=== PATIENT | female | born 1950 | race Caucasian/White ===

== ENCOUNTER 2016-03-21 13:33 | Emergency (ER) | payer OTHER ==
[~2016-03-21] VITALS: Ht 165.1 cm; Wt 75.7 kg
[~2016-03-21 13:33] MED LIST: ACCUPRIL10 MG PO; ALBUTEROL SULF8.5 GM IH; ARTHROTEC 751 TABLET PO; ASPIR 8181 M1 PO; ATORVASTATIN CA40 MG PO; CAL-MAG TABLET1 EACH PO; CALCIUM WITH M1 EAC2 PO; CYMBALTA30 MG PO; CYMBALTA60 MG PO; FLEXERIL10 MG PO; GABAPENTIN100 MG PO; JANUMET 50/11 TABLET PO; JANUVIA100 MG PO; KEFLEX500 MG PO; LANTUS 10100 UNITS/ SC; LEVEMIR FL100 UNIT/1 SC; LEVEMIR FL100 UNITS/ SC; NITROSTAT0.4 MG SL; NOVOLOG MI100 UNIT/4 SC; PERCOCET 5/31 TABLET PO; PLAVIX75 MG PO; PRAVACHOL40 MG PO; PREDNISONE20 MG PO; TOPROL XL25 MG PO; VITAMIN D-32000 UNI1 PO; XARELTO20 MG PO; ZESTRIL2.5 MG PO; ZITHROMAX Z-PA250 MG PO; ZOFRAN4 MG PO
[2016-03-21 16:40] LABS: HEMATOCRIT 39.8 % (36.0-46.0); MCHC 33.9 G/DL (30.0-36.0); MCV 82.6 FL (83-99); MEAN PLAT.VOLUME 11.2 uM^3 (9.5-12.4); PLATELET COUNT 264 K/uL (156-360); RBC DIS.WIDTH-CV 14.9 % (11.8-14.6); RBC DIS.WIDTH-SD 44.5 % (39-53); RED BLOOD COUNT 4.82 M/uL (3.80-5.20)
[2016-03-21 16:49] LABS: PROTHROMBIN TIME 10.1 (9.2-11.2); PTT 23.5 (25-32)
[2016-03-21 16:50] LABS: CHLORIDE 99 mEq/L (99-109); POTASSIUM 4.3 mEq/L (3.7-5.4); SODIUM 133 mEq/L (136-147)
[2016-03-21 16:52] LABS: GLUCOSE 246 mg/dL (70-99)
[2016-03-21 16:53] LABS: ANION GAP 9 MEQ/L (2-14)
[2016-03-21 16:56] LABS: GFR ESTIMATE (CALCULATED) > 59 mL/min/
[2016-03-21 16:57] LABS: UREA NITROGEN (BUN) 18 mg/dL (9-23)
[2016-03-21] MEDS ORDERED: GABAPENTIN300 MG PO ×2 (17:36→17:37)
[2016-03-21] MEDS ORDERED: OMEPRAZOLE20 MG PO (17:37)
[2016-03-21] MEDS ORDERED: CYANOCOBALAM1000 MCG PO (17:38)
[2016-03-21] MEDS ORDERED: VITAMIN D31000 UNIT PO (17:38)
[2016-03-21 21:10] VITALS: BP 108/70
== END 2016-03-21 21:10 | disposition short-term general hospital (02) ==
LOC: EME 13:33
PROVIDERS: Emergency Medicine
DX: T82.868A Thrombosis due to vascular prosthetic devices, implants and grafts, initial encounter (principal); I73.9 Peripheral vascular disease, unspecified; Y83.2 Surgical operation with anastomosis, bypass or graft as the cause of abnormal reaction of the patient, or of later complication, without mention of misadventure at the time of the procedure; E11.9 Type 2 diabetes mellitus without complications; I10 Essential (primary) hypertension; I25.2 Old myocardial infarction; K21.9 Gastro-esophageal reflux disease without esophagitis; Z86.73 Personal history of transient ischemic attack (TIA), and cerebral infarction without residual deficits
CPT/HCPCS: 80048; 85027; 85610; 85730; 93926; 99281; 99285; J2270

== ENCOUNTER 2016-06-28 10:36 | Emergency (ER) | payer OTHER ==
[~2016-06-28] VITALS: Ht 162.6 cm; Wt 77.2 kg
[~2016-06-28 10:36] MED LIST changes: +CYANOCOBALAM1000 MCG PO; +GABAPENTIN300 MG PO; +OMEPRAZOLE20 MG PO; +VITAMIN D31000 UNIT PO
[2016-06-28 11:22] LABS: HEMATOCRIT 41.4 % (36.0-46.0); MCH 29.2 PG (29.0-34.0); MCHC 32.9 G/DL (30.0-36.0); MCV 88.8 FL (83-99); MEAN PLAT.VOLUME 11.4 uM^3 (9.5-12.4); PLATELET COUNT 324 K/uL (156-360); RBC DIS.WIDTH-CV 13.2 % (11.8-14.6); RBC DIS.WIDTH-SD 43.5 % (39-53); RED BLOOD COUNT 4.66 M/uL (3.80-5.20); WHITE BLOOD COUNT 8.6 K/uL (4.1-10.2)
[2016-06-28 11:34] LABS: CHLORIDE 97 mEq/L (99-109); POTASSIUM 4.4 mEq/L (3.7-5.4); SODIUM 131 mEq/L (136-147)
[2016-06-28 11:36] LABS: GLUCOSE 368 mg/dL (70-99)
[2016-06-28 11:38] LABS: ANION GAP 9 MEQ/L (2-14)
[2016-06-28 11:40] LABS: GFR ESTIMATE (CALCULATED) 48 mL/min/
[2016-06-28 11:41] LABS: UREA NITROGEN (BUN) 32 mg/dL (9-23)
[2016-06-28 11:43] LABS: TROP-I INTERPRETATION NEGATIVE; TROPONIN-I < 0.01 ng/mL (0.0-0.30)
[2016-06-28 14:36] LABS: PROTHROMBIN TIME 26.8 (9.2-11.2)
[2016-06-28 14:48] LABS: TROP-I INTERPRETATION NEGATIVE; TROPONIN-I < 0.01 ng/mL (0.0-0.30)
[2016-06-28 15:25] LABS: INTER. NORMALIZED RATIO 2.6
[2016-06-28 16:08] LABS: ADD MIUA? YES; BILIRUBIN NEGATIVE; BLOOD SMALL; COLOR YELLOW ((YELLOW)); KETONES NEGATIVE; LEUKOCYTES MODERATE; NITRITE POSITIVE; PROTEIN (STRIP) NEGATIVE; SPECIFIC GRAVITY 1.013 (1.000-1.030); UROBILINOGEN 0.2 MG/DL (0.2-1.0)
[2016-06-28 16:12] LABS: GLUCOSE (STRIP) 500
[2016-06-28 16:24] LABS: BACTERIA RARE /HPF; EPITHELIAL CELLS RARE /HPF; MUCUS NONE SEEN /LPF; RED BLOOD CELLS 0-5 /HPF (0-5); UCUL ADDED? NO; WHITE BLOOD CELLS 20-30 /HPF (0-5)
[2016-06-28] MEDS ORDERED: PROAIR HFA8.5 GM IH (16:25)
[2016-06-28] MEDS ORDERED: CEFDINIR300 MG PO (16:25)
[2016-06-28 16:58] VITALS: BP 119/67
== END 2016-06-28 17:00 | disposition home or self-care (01) ==
LOC: EME 10:36
PROVIDERS: Emergency Medicine
DX: J40 Bronchitis, not specified as acute or chronic (principal); R07.89 Other chest pain; E86.0 Dehydration; N39.0 Urinary tract infection, site not specified; I25.10 Atherosclerotic heart disease of native coronary artery without angina pectoris; Z95.1 Presence of aortocoronary bypass graft; Z86.718 Personal history of other venous thrombosis and embolism; E11.9 Type 2 diabetes mellitus without complications; Z79.01 Long term (current) use of anticoagulants; I10 Essential (primary) hypertension; I25.2 Old myocardial infarction; K21.9 Gastro-esophageal reflux disease without esophagitis; Z79.4 Long term (current) use of insulin
CPT/HCPCS: 70450; 71020; 80048; 81003; 84484; 85027; 85610; 93005; 94640; 99281; 99285; J7030

== ENCOUNTER 2016-09-10 23:53 | Emergency (ER) | payer OTHER ==
[~2016-09-10] VITALS: Ht 162.6 cm; Wt 77.2 kg
[~2016-09-10 23:53] MED LIST changes: +CEFDINIR300 MG PO; +PROAIR HFA8.5 GM IH
[2016-09-11 01:57] VITALS: BP 93/53
== END 2016-09-11 01:59 | disposition home or self-care (01) ==
LOC: EME 23:53
DX: S80.02XA Contusion of left knee, initial encounter (principal); X58.XXXA Exposure to other specified factors, initial encounter; Z86.718 Personal history of other venous thrombosis and embolism; K21.9 Gastro-esophageal reflux disease without esophagitis; I10 Essential (primary) hypertension; Z95.1 Presence of aortocoronary bypass graft; E11.9 Type 2 diabetes mellitus without complications; I25.2 Old myocardial infarction; Z79.4 Long term (current) use of insulin; Z79.82 Long term (current) use of aspirin; Z79.01 Long term (current) use of anticoagulants
CPT/HCPCS: 73564; 99281; 99284

== ENCOUNTER 2016-11-06 16:26 | Emergency (ER) | payer OTHER ==
[~2016-11-06] VITALS: Ht 165.1 cm; Wt 80.7 kg
[2016-11-06 17:44] LABS: MCH 27.8 PG (29.0-34.0); MCHC 32.4 G/DL (30.0-36.0); MCV 85.6 FL (83-99); PLATELET COUNT 369 K/uL (156-360); RED BLOOD COUNT 4.32 M/uL (3.80-5.20)
[2016-11-06 17:56] LABS: CHLORIDE 102 mEq/L (99-109); POTASSIUM 4.6 mEq/L (3.7-5.4); SODIUM 136 mEq/L (136-147)
[2016-11-06 17:58] LABS: GLUCOSE 234 mg/dL (70-99)
[2016-11-06 17:59] LABS: ANION GAP 10 MEQ/L (2-14)
[2016-11-06 18:00] LABS: TOTAL BILIRUBIN 0.2 mg/dL (0.0-1.0)
[2016-11-06 18:01] LABS: ALKALINE PHOSPHATASE 137 IU/L (3-129); INTER. NORMALIZED RATIO 3.7; PROTHROMBIN TIME 43.2 SEC (10.2-12.9)
[2016-11-06 18:02] LABS: GFR ESTIMATE (CALCULATED) 53 mL/min/
[2016-11-06 18:03] LABS: UREA NITROGEN (BUN) 24 mg/dL (9-23)
[2016-11-06 18:54] VITALS: BP 123/77
== END 2016-11-06 18:55 | disposition home or self-care (01) ==
LOC: EME 16:26
PROVIDERS: Physician Assistant
DX: R79.1 Abnormal coagulation profile (principal); M79.81 Nontraumatic hematoma of soft tissue; K21.9 Gastro-esophageal reflux disease without esophagitis; I25.2 Old myocardial infarction; I10 Essential (primary) hypertension; E11.9 Type 2 diabetes mellitus without complications; Z86.73 Personal history of transient ischemic attack (TIA), and cerebral infarction without residual deficits; Z98.61 Coronary angioplasty status; Z79.4 Long term (current) use of insulin; Z79.02 Long term (current) use of antithrombotics/antiplatelets; Z79.82 Long term (current) use of aspirin
CPT/HCPCS: 80053; 85027; 85610; 99281; 99284

== ENCOUNTER 2017-01-17 18:40 | Observation (INO) | payer OTHER ==
[~2017-01-17] VITALS: Ht 165.1 cm; Wt 80.6 kg
[2017-01-17 19:09] LABS: HEMATOCRIT 29.8 % (36.0-46.0); MCH 26.7 PG (29.0-34.0); MCHC 32.6 G/DL (30.0-36.0); MCV 82.1 FL (83-99); MEAN PLAT.VOLUME 11.5 uM^3 (9.5-12.4); PLATELET COUNT 293 K/uL (156-360); RBC DIS.WIDTH-CV 14.1 % (11.8-14.6); RBC DIS.WIDTH-SD 41.7 % (39-53); RED BLOOD COUNT 3.63 M/uL (3.80-5.20); WHITE BLOOD COUNT 8.2 K/uL (4.1-10.2)
[2017-01-17 19:22] LABS: PROTHROMBIN TIME 62.9 SEC (10.2-12.9)
[2017-01-17 19:25] LABS: INTER. NORMALIZED RATIO 5.5
[2017-01-17 20:16] LABS: CHLORIDE 97 mEq/L (99-109); POTASSIUM 4.3 mEq/L (3.7-5.4); SODIUM 132 mEq/L (136-147)
[2017-01-17 20:19] LABS: ANION GAP 11 MEQ/L (2-14)
[2017-01-17 20:22] LABS: GFR ESTIMATE (CALCULATED) > 59 mL/min/
[2017-01-17 20:23] LABS: UREA NITROGEN (BUN) 16 mg/dL (9-23)
[2017-01-17] MEDS ORDERED: JENTADUETO 2.51 EAC2 PO (20:34)
[2017-01-17 20:35] LABS: GLUCOSE 436 mg/dL (70-99)
[2017-01-17] MEDS ORDERED: WARFARIN SODIUM5 MG PO (20:38)
[2017-01-17] MEDS ORDERED: WARFARIN SODIU7.5 MG PO (20:39)
[2017-01-17] MEDS ORDERED: ACETAMINOPHEN-1 EAC1 PO (20:40)
[2017-01-17] MEDS ORDERED: ANORO ELLIPTA1 EACH IH (20:40)
[2017-01-17] MEDS ORDERED: GABAPENTIN400 MG PO (20:42)
[2017-01-17 22:58] VITALS: BP 96/51
[2017-01-17 23:50] LABS: POINT-OF-CARE METER ID UU13113700
[2017-01-18 04:08] VITALS: BP 100/51
[2017-01-18 05:44] LABS: HEMATOCRIT 28.9 % (36.0-46.0); MCH 26.8 PG (29.0-34.0); MCHC 31.5 G/DL (30.0-36.0); MCV 85.3 FL (83-99); PLATELET COUNT 278 K/uL (156-360); RBC DIS.WIDTH-CV 14.6 % (11.8-14.6); RBC DIS.WIDTH-SD 44.5 % (39-53); RED BLOOD COUNT 3.39 M/uL (3.80-5.20)
[2017-01-18 06:00] LABS: PROTHROMBIN TIME 67.9 SEC (10.2-12.9)
[2017-01-18 06:21] LABS: ANION GAP 7 MEQ/L (2-14); CHLORIDE 98 MEQ/L (99-109); GFR ESTIMATE (CALCULATED) 44 mL/min/; GLUCOSE 369 mg/dL (70-99); POTASSIUM 4.4 MEQ/L (3.7-5.4); SAMPLE HEMOLYSIS CHECK 0; SAMPLE ICTERIC CHECK 0; SAMPLE LIPEMIA CHECK 0; SODIUM 134 MEQ/L (136-147)
[2017-01-18 06:25] LABS: UREA NITROGEN (BUN) 25 mg/dL (9-23)
[2017-01-18 06:58] LABS: INTER. NORMALIZED RATIO 5.9
[2017-01-18 07:10] LABS: ADD MIUA? YES; BILIRUBIN NEGATIVE; BLOOD SMALL; COLOR YELLOW ((YELLOW)); GLUCOSE (STRIP) >=500; KETONES 5; LEUKOCYTES NEGATIVE; NITRITE POSITIVE; PROTEIN (STRIP) NEGATIVE; SPECIFIC GRAVITY 1.029 (1.000-1.030); UROBILINOGEN 0.2 MG/DL (0.2-1.0)
[2017-01-18 07:18] LABS: BACTERIA RARE /HPF; EPITHELIAL CELLS RARE /HPF; MUCUS TRACE /LPF; RED BLOOD CELLS 0-5 /HPF (0-5); UCUL ADDED? YES
[2017-01-18 11:11] VITALS: BP 99/53
[2017-01-18 16:24] VITALS: BP 98/53
[2017-01-18 19:12] VITALS: BP 101/46
[2017-01-18 23:59] VITALS: BP 104/51
[2017-01-19 03:25] VITALS: BP 99/52
[2017-01-19 07:40] VITALS: BP 112/56
[2017-01-19 08:18] LABS: HEMATOCRIT 29.2 % (36.0-46.0); MCHC 32.2 G/DL (30.0-36.0); MCV 83.9 FL (83-99); MEAN PLAT.VOLUME 11.5 uM^3 (9.5-12.4); PLATELET COUNT 305 K/uL (156-360); RBC DIS.WIDTH-CV 14.5 % (11.8-14.6); RBC DIS.WIDTH-SD 43.4 % (39-53); RED BLOOD COUNT 3.48 M/uL (3.80-5.20)
[2017-01-19 08:25] LABS: PTT 33.8 SEC (25-37)
[2017-01-19 08:31] LABS: INTER. NORMALIZED RATIO 2.2; PROTHROMBIN TIME 25.1 SEC (10.2-12.9)
[2017-01-19 08:46] LABS: ANION GAP 7 MEQ/L (2-14); CHLORIDE 97 MEQ/L (99-109); GFR ESTIMATE (CALCULATED) > 59 mL/min/; GLUCOSE 240 mg/dL (70-99); POTASSIUM 4.8 MEQ/L (3.7-5.4); SAMPLE HEMOLYSIS CHECK 0; SAMPLE ICTERIC CHECK 0; SAMPLE LIPEMIA CHECK 0; SODIUM 135 MEQ/L (136-147); UREA NITROGEN (BUN) 31 mg/dL (9-23)
[2017-01-19] MEDS ORDERED: ACETAMINOPHEN-1 EAC1 PO (11:14)
[2017-01-19] MEDS ORDERED: METFORMIN HCL1000 MG PO (11:14)
[2017-01-19 11:56] VITALS: BP 115/58
[2017-01-19] MEDS ORDERED: COUMADIN5 MG PO (12:40)
== END 2017-01-19 16:00 | disposition home or self-care (01) ==
LOC: EME 18:40 → EDOF 21:26 → 5WEST 21:26 → EDOF 21:26 → ENRESERV 21:31 → 5WEST 22:47
PROVIDERS: Hospitalist; Nurse Practitioner Adult Health; Physician Assistant Medical
DX: R04.0 Epistaxis (principal); R79.1 Abnormal coagulation profile; S70.12XA Contusion of left thigh, initial encounter; S70.11XA Contusion of right thigh, initial encounter; S40.022A Contusion of left upper arm, initial encounter; S40.021A Contusion of right upper arm, initial encounter; I48.91 Unspecified atrial fibrillation; Z79.01 Long term (current) use of anticoagulants; E11.65 Type 2 diabetes mellitus with hyperglycemia; E11.42 Type 2 diabetes mellitus with diabetic polyneuropathy; I10 Essential (primary) hypertension; I25.2 Old myocardial infarction; Z95.1 Presence of aortocoronary bypass graft; D64.9 Anemia, unspecified; K21.9 Gastro-esophageal reflux disease without esophagitis; Z23 Encounter for immunization; Z79.82 Long term (current) use of aspirin; F17.210 Nicotine dependence, cigarettes, uncomplicated; Z79.4 Long term (current) use of insulin; Z79.02 Long term (current) use of antithrombotics/antiplatelets; Z86.718 Personal history of other venous thrombosis and embolism
CPT/HCPCS: 80048; 81003; 82948; 85027; 85610; 85730; 87077; 87086; 87186; 90686; 94799; 99281; 99285; G0378; J2270; J2405; J7120

== ENCOUNTER 2017-03-10 13:18 | Emergency (ER) | payer OTHER ==
[~2017-03-10] VITALS: Ht 162.6 cm; Wt 80.1 kg
[~2017-03-10 13:18] MED LIST changes: +ACETAMINOPHEN-1 EAC1 PO; +ANORO ELLIPTA1 EACH IH; +COUMADIN5 MG PO; +GABAPENTIN400 MG PO; +JENTADUETO 2.51 EAC2 PO; +METFORMIN HCL1000 MG PO; +WARFARIN SODIU7.5 MG PO; +WARFARIN SODIUM5 MG PO
[2017-03-10 15:43] LABS: HEMATOCRIT 30.7 % (36.0-46.0); HEMOGLOBIN 9.1 G/DL (11.9-15.5); MCH 23.1 PG (29.0-34.0); MCHC 29.6 G/DL (30.0-36.0); MCV 77.9 FL (83-99); PLATELET COUNT 428 K/uL (156-360); RBC DIS.WIDTH-CV 16.6 % (11.8-14.6); RBC DIS.WIDTH-SD 47.1 % (39-53); RED BLOOD COUNT 3.94 M/uL (3.80-5.20); WHITE BLOOD COUNT 10.5 K/uL (4.1-10.2)
[2017-03-10 15:56] LABS: ALBUMIN 4.1 g/dL (3.2-4.8)
[2017-03-10 15:57] LABS: CHLORIDE 106 mEq/L (99-109); POTASSIUM 5.1 mEq/L (3.7-5.4); SODIUM 136 mEq/L (136-147)
[2017-03-10 15:59] LABS: GLUCOSE 211 mg/dL (70-99); TOTAL PROTEIN 7.1 g/dL (6.4-8.3)
[2017-03-10 16:01] LABS: TOTAL BILIRUBIN 0.2 mg/dL (0.0-1.0)
[2017-03-10 16:02] LABS: ALKALINE PHOSPHATASE 112 IU/L (3-129)
[2017-03-10 16:03] LABS: CREATININE 0.8 mg/dL (0.6-1.3); GFR ESTIMATE (CALCULATED) > 59 mL/min/
[2017-03-10 16:04] LABS: AST (GOT) 14 IU/L (2-34); UREA NITROGEN (BUN) 18 mg/dL (9-23)
[2017-03-10 16:05] LABS: ALT (GPT) 18 IU/L (3-49)
[2017-03-10 16:15] LABS: APPEARANCE CLOUDY ((CLEAR)); BILIRUBIN NEGATIVE; BLOOD NEGATIVE; COLOR YELLOW ((YELLOW)); GLUCOSE (STRIP) 50; KETONES 5; LEUKOCYTES SMALL; NITRITE NEGATIVE; PROTEIN (STRIP) NEGATIVE; SPECIFIC GRAVITY 1.026 (1.000-1.030)
[2017-03-10 16:19] LABS: BACTERIA RARE /HPF; EPITHELIAL CELLS 1+ /HPF; MUCUS TRACE /LPF; RED BLOOD CELLS 0-5 /HPF (0-5); UCUL ADDED? YES
[2017-03-10] MEDS ORDERED: BENTYL20 MG PO (21:06)
[2017-03-10 21:40] VITALS: BP 142/66
== END 2017-03-10 21:41 | disposition home or self-care (01) ==
LOC: EME 13:18
DX: R19.7 Diarrhea, unspecified (principal); R10.9 Unspecified abdominal pain; R11.2 Nausea with vomiting, unspecified; N20.0 Calculus of kidney; E11.9 Type 2 diabetes mellitus without complications; Z79.4 Long term (current) use of insulin; I10 Essential (primary) hypertension; I25.2 Old myocardial infarction; Z95.1 Presence of aortocoronary bypass graft; Z95.5 Presence of coronary angioplasty implant and graft; Z86.73 Personal history of transient ischemic attack (TIA), and cerebral infarction without residual deficits; Z86.718 Personal history of other venous thrombosis and embolism; Z79.02 Long term (current) use of antithrombotics/antiplatelets; Z79.82 Long term (current) use of aspirin; Z87.891 Personal history of nicotine dependence
CPT/HCPCS: 74177; 80053; 81003; 85027; 87086 GA; 87493; 87506; 99281; 99284; J2405; J3010; J7030

== ENCOUNTER 2017-05-12 07:39 | Emergency (ER) | payer OTHER ==
[~2017-05-12] VITALS: Ht 162.6 cm; Wt 80.8 kg
[~2017-05-12 07:39] MED LIST changes: +BENTYL20 MG PO
[2017-05-12 08:58] LABS: HEMATOCRIT 31.8 % (36.0-46.0); HEMOGLOBIN 9.8 G/DL (11.9-15.5); MCHC 30.8 G/DL (30.0-36.0); MCV 71.5 FL (83-99); PLATELET COUNT 349 K/uL (156-360); RBC DIS.WIDTH-CV 18.6 % (11.8-14.6); RBC DIS.WIDTH-SD 47.6 % (39-53); RED BLOOD COUNT 4.45 M/uL (3.80-5.20); WHITE BLOOD COUNT 8.1 K/uL (4.1-10.2)
[2017-05-12 09:01] LABS: CHLORIDE 100 mEq/L (99-109)
[2017-05-12 09:02] LABS: POTASSIUM 5.1 mEq/L (3.7-5.4); PTT 23.7 SEC (25-37); SODIUM 132 mEq/L (136-147)
[2017-05-12 09:07] LABS: CREATININE 1.2 mg/dL (0.6-1.3); GFR ESTIMATE (CALCULATED) 48 mL/min/
[2017-05-12 09:08] LABS: UREA NITROGEN (BUN) 24 mg/dL (9-23)
[2017-05-12 09:09] LABS: INTER. NORMALIZED RATIO 0.9
[2017-05-12 09:14] LABS: GLUCOSE 625 mg/dL (70-99)
[2017-05-12 16:21] VITALS: BP 132/61
== END 2017-05-12 16:21 | disposition home or self-care (01) ==
LOC: EME 07:39
PROVIDERS: Nurse Practitioner Family
DX: I74.3 Embolism and thrombosis of arteries of the lower extremities (principal); E11.65 Type 2 diabetes mellitus with hyperglycemia; R79.1 Abnormal coagulation profile; Z79.4 Long term (current) use of insulin; Z95.820 Peripheral vascular angioplasty status with implants and grafts; Z86.718 Personal history of other venous thrombosis and embolism; Z79.01 Long term (current) use of anticoagulants; Z79.02 Long term (current) use of antithrombotics/antiplatelets; Z79.82 Long term (current) use of aspirin; I10 Essential (primary) hypertension; I25.2 Old myocardial infarction; K21.9 Gastro-esophageal reflux disease without esophagitis; Z86.73 Personal history of transient ischemic attack (TIA), and cerebral infarction without residual deficits; Z95.1 Presence of aortocoronary bypass graft; Z87.891 Personal history of nicotine dependence
CPT/HCPCS: 80048; 82948; 85027; 85610; 85730; 93926; 99281; 99285; J7030

== ENCOUNTER 2017-07-08 13:31 | Emergency (ER) | payer OTHER ==
[~2017-07-08] VITALS: Ht 165.1 cm; Wt 73.1 kg
[2017-07-08 14:16] LABS: HEMATOCRIT 31.2 % (36.0-46.0); MCH 27.2 PG (29.0-34.0); MCHC 32.1 G/DL (30.0-36.0); MCV 84.8 FL (83-99); PLATELET COUNT 401 K/uL (156-360); RBC DIS.WIDTH-CV 19.5 % (11.8-14.6); RBC DIS.WIDTH-SD 61.3 % (39-53); RED BLOOD COUNT 3.68 M/uL (3.80-5.20); WHITE BLOOD COUNT 7.1 K/uL (4.1-10.2)
[2017-07-08 14:26] LABS: CHLORIDE 105 mEq/L (99-109); POTASSIUM 3.3 mEq/L (3.7-5.4); SODIUM 140 mEq/L (136-147)
[2017-07-08 14:28] LABS: GLUCOSE 218 mg/dL (70-99)
[2017-07-08 14:32] LABS: CREATININE 0.8 mg/dL (0.6-1.3); GFR ESTIMATE (CALCULATED) > 59 mL/min/
[2017-07-08 14:33] LABS: UREA NITROGEN (BUN) 12 mg/dL (9-23)
[2017-07-08 18:31] VITALS: BP 147/88
== END 2017-07-08 18:31 | disposition home or self-care (01) ==
LOC: EME 13:31
PROVIDERS: Nurse Practitioner Family
DX: E11.52 Type 2 diabetes mellitus with diabetic peripheral angiopathy with gangrene (principal); I96 Gangrene, not elsewhere classified; S90.122A Contusion of left lesser toe(s) without damage to nail, initial encounter; W22.8XXA Striking against or struck by other objects, initial encounter; Z79.4 Long term (current) use of insulin; Z79.01 Long term (current) use of anticoagulants; Z98.890 Other specified postprocedural states; Z86.718 Personal history of other venous thrombosis and embolism; Z79.02 Long term (current) use of antithrombotics/antiplatelets; Z79.82 Long term (current) use of aspirin; I10 Essential (primary) hypertension; I25.2 Old myocardial infarction; K21.9 Gastro-esophageal reflux disease without esophagitis; Z95.1 Presence of aortocoronary bypass graft; Z86.73 Personal history of transient ischemic attack (TIA), and cerebral infarction without residual deficits; Z87.891 Personal history of nicotine dependence
CPT/HCPCS: 73630; 80048; 83605; 85027; 87040; 99281; 99285

== ENCOUNTER 2017-07-25 04:39 | Emergency (ER) | payer OTHER ==
[~2017-07-25] VITALS: Ht 165.1 cm; Wt 50.8 kg
[2017-07-25 05:57] LABS: BASOPHIL (%) 0.9 % (0-1); BASOPHIL COUNT 0.1 K/uL (0-0.1); EOSINOPHIL (%) 4.6 % (0-5); EOSINOPHIL COUNT 0.5 K/uL (0-0.3); HEMATOCRIT 31.7 % (36.0-46.0); HEMOGLOBIN 10.2 G/DL (11.9-15.5); IMMATURE GRANULOCYTE (%) 0.4 % (0.0-0.7); LYMPHOCYTE (%) 17.2 % (15-42); LYMPHOCYTE COUNT 1.7 K/uL (1.0-2.8); MCH 26.6 PG (29.0-34.0); MCHC 32.2 G/DL (30.0-36.0); MCV 82.6 FL (83-99); MONOCYTE (%) 10.3 % (3-12); NEUTROPHIL (%) 66.6 % (45-76); NEUTROPHIL COUNT 6.7 K/uL (1.8-6.4); PLATELET COUNT 336 K/uL (156-360); RBC DIS.WIDTH-CV 17.1 % (11.8-14.6); RBC DIS.WIDTH-SD 51.5 % (39-53); RED BLOOD COUNT 3.84 M/uL (3.80-5.20)
[2017-07-25 06:10] LABS: ALBUMIN 3.7 g/dL (3.2-4.8); CHLORIDE 107 mEq/L (99-109); POTASSIUM 3.9 mEq/L (3.7-5.4); SODIUM 141 mEq/L (136-147)
[2017-07-25 06:12] LABS: GLUCOSE 127 mg/dL (70-99); TOTAL PROTEIN 6.7 g/dL (6.4-8.3)
[2017-07-25 06:14] LABS: TOTAL BILIRUBIN 0.2 mg/dL (0.0-1.0)
[2017-07-25 06:16] LABS: ALKALINE PHOSPHATASE 132 IU/L (3-129); CREATININE 0.7 mg/dL (0.6-1.3); GFR ESTIMATE (CALCULATED) > 59 mL/min/
[2017-07-25 06:17] LABS: TROP-I INTERPRETATION NEGATIVE; TROPONIN-I < 0.01 ng/mL (0.0-0.30); UREA NITROGEN (BUN) 10 mg/dL (9-23)
[2017-07-25 06:18] LABS: AST (GOT) 10 IU/L (2-34)
[2017-07-25 06:19] LABS: ALT (GPT) 9 IU/L (3-49)
[2017-07-25 08:31] VITALS: BP 125/68
== END 2017-07-25 08:33 | disposition home or self-care (01) ==
LOC: EME 04:39
PROVIDERS: Emergency Medicine
DX: R06.02 Shortness of breath (principal); F41.9 Anxiety disorder, unspecified; Z86.718 Personal history of other venous thrombosis and embolism; E11.9 Type 2 diabetes mellitus without complications; K21.9 Gastro-esophageal reflux disease without esophagitis; I10 Essential (primary) hypertension; Z87.891 Personal history of nicotine dependence; I25.2 Old myocardial infarction; Z95.1 Presence of aortocoronary bypass graft; Z95.5 Presence of coronary angioplasty implant and graft; Z95.0 Presence of cardiac pacemaker; Z86.73 Personal history of transient ischemic attack (TIA), and cerebral infarction without residual deficits; Z79.4 Long term (current) use of insulin; Z79.82 Long term (current) use of aspirin
CPT/HCPCS: 71046; 71275; 80053; 84484; 85025; 93005; 99281; 99284

== ENCOUNTER 2017-07-29 16:08 | Emergency (ER) | payer OTHER ==
[~2017-07-29] VITALS: Ht 165.1 cm; Wt 85.3 kg
[2017-07-29 17:43] VITALS: BP 138/72
== END 2017-07-29 17:43 | disposition home or self-care (01) ==
LOC: EME 16:08
DX: S50.312A Abrasion of left elbow, initial encounter (principal); S51.812A Laceration without foreign body of left forearm, initial encounter; W01.0XXA Fall on same level from slipping, tripping and stumbling without subsequent striking against object, initial encounter; Y93.01 Activity, walking, marching and hiking; Y92.531 Health care provider office as the place of occurrence of the external cause; R26.9 Unspecified abnormalities of gait and mobility; I10 Essential (primary) hypertension; E11.9 Type 2 diabetes mellitus without complications; Z79.4 Long term (current) use of insulin; K21.9 Gastro-esophageal reflux disease without esophagitis; I25.2 Old myocardial infarction; Z79.01 Long term (current) use of anticoagulants; Z79.82 Long term (current) use of aspirin; Z86.73 Personal history of transient ischemic attack (TIA), and cerebral infarction without residual deficits; Z87.891 Personal history of nicotine dependence; Z95.1 Presence of aortocoronary bypass graft; Z90.49 Acquired absence of other specified parts of digestive tract; Z95.810 Presence of automatic (implantable) cardiac defibrillator; Z95.828 Presence of other vascular implants and grafts; Z86.718 Personal history of other venous thrombosis and embolism; Z95.5 Presence of coronary angioplasty implant and graft
CPT/HCPCS: 99281; 99283

== ENCOUNTER 2017-08-02 12:27 | Emergency (ER) | payer OTHER ==
[~2017-08-02] VITALS: Ht 165.1 cm; Wt 75.9 kg
[2017-08-02 12:32] VITALS: BP 152/86
[2017-08-02] MEDS ORDERED: XANAX0.5 MG PO (13:31)
== END 2017-08-02 13:36 | disposition home or self-care (01) ==
LOC: EME 12:27
DX: Z45.2 Encounter for adjustment and management of vascular access device (principal); F41.9 Anxiety disorder, unspecified; Z91.81 History of falling; I10 Essential (primary) hypertension; E78.5 Hyperlipidemia, unspecified; E11.9 Type 2 diabetes mellitus without complications; K21.9 Gastro-esophageal reflux disease without esophagitis; I25.2 Old myocardial infarction; Z86.718 Personal history of other venous thrombosis and embolism; Z86.73 Personal history of transient ischemic attack (TIA), and cerebral infarction without residual deficits; Z90.710 Acquired absence of both cervix and uterus; Z79.82 Long term (current) use of aspirin; Z79.02 Long term (current) use of antithrombotics/antiplatelets; Z79.4 Long term (current) use of insulin
CPT/HCPCS: 71046; 99281; 99285

== ENCOUNTER 2017-08-07 12:24 | Emergency (ER) | payer OTHER ==
[~2017-08-07] VITALS: Ht 165.1 cm; Wt 74.2 kg
[~2017-08-07 12:24] MED LIST changes: +XANAX0.5 MG PO
[2017-08-07 15:58] VITALS: BP 124/64
== END 2017-08-07 15:50 | disposition home or self-care (01) ==
LOC: EME 12:24
DX: T82.594A Other mechanical complication of infusion catheter, initial encounter (principal); Z79.2 Long term (current) use of antibiotics; I51.7 Cardiomegaly; I10 Essential (primary) hypertension; E78.5 Hyperlipidemia, unspecified; E11.9 Type 2 diabetes mellitus without complications; Z79.4 Long term (current) use of insulin; Z95.1 Presence of aortocoronary bypass graft; Z95.5 Presence of coronary angioplasty implant and graft; Z79.02 Long term (current) use of antithrombotics/antiplatelets; Z79.82 Long term (current) use of aspirin
CPT/HCPCS: 71046; 99281; 99284; J2997

== ENCOUNTER 2017-09-28 16:06 | Inpatient (IN) | payer OTHER ==
[~2017-09-28] VITALS: Ht 165.1 cm; Wt 78.2 kg
[2017-09-28 17:26] LABS: ALBUMIN 4.3 g/dL (3.2-4.8); CHLORIDE 100 mEq/L (99-109); POTASSIUM 5.7 mEq/L (3.7-5.4); SODIUM 136 mEq/L (136-147)
[2017-09-28 17:28] LABS: GLUCOSE 77 mg/dL (70-99); TOTAL PROTEIN 8.2 g/dL (6.4-8.3)
[2017-09-28 17:28] LABS: HEMATOCRIT 36.1 % (36.0-46.0); HEMOGLOBIN 11.7 G/DL (11.9-15.5); MCH 24.8 PG (29.0-34.0); MCHC 32.4 G/DL (30.0-36.0); MCV 76.6 FL (83-99); PLATELET COUNT 326 K/uL (156-360); RBC DIS.WIDTH-CV 16.2 % (11.8-14.6); RBC DIS.WIDTH-SD 44.9 % (39-53); RED BLOOD COUNT 4.71 M/uL (3.80-5.20)
[2017-09-28 17:30] LABS: TOTAL BILIRUBIN 0.3 mg/dL (0.0-1.0)
[2017-09-28 17:32] LABS: ALKALINE PHOSPHATASE 124 IU/L (3-129); CREATININE 1.5 mg/dL (0.6-1.3); GFR ESTIMATE (CALCULATED) 37 mL/min/
[2017-09-28 17:33] LABS: AST (GOT) 10 IU/L (2-34); UREA NITROGEN (BUN) 24 mg/dL (9-23)
[2017-09-28 17:35] LABS: ALT (GPT) 8 IU/L (3-49)
[2017-09-28] MEDS ORDERED: LOPRESSOR25 MG PO (19:31)
[2017-09-28] MEDS ORDERED: PROTONIX40 MG PO (19:32)
[2017-09-28] MEDS ORDERED: BENADRYL ALLERG25 MG PO (19:33)
[2017-09-28] MEDS ORDERED: ELIQUIS5 MG PO (19:33)
[2017-09-28] MEDS ORDERED: ALEVE220 MG PO (19:33)
[2017-09-29] VITALS (8 sets, daily range): BP systolic 111–200; BP diastolic 54–91
[2017-09-29 06:24] LABS: CHLORIDE 105 MEQ/L (99-109); CREATININE 1.4 MG/DL (0.6-1.3); GFR ESTIMATE (CALCULATED) 40 mL/min/; SODIUM 140 MEQ/L (136-147); UREA NITROGEN (BUN) 22 mg/dL (9-23)
[2017-09-29 06:25] LABS: HEMATOCRIT 30.8 % (36.0-46.0); MCH 24.4 PG (29.0-34.0); MCHC 30.8 G/DL (30.0-36.0); PLATELET COUNT 277 K/uL (156-360); RBC DIS.WIDTH-CV 16.4 % (11.8-14.6); RBC DIS.WIDTH-SD 46.3 % (39-53); WHITE BLOOD COUNT 9.9 K/uL (4.1-10.2)
[2017-09-29 06:26] LABS: HEMOGLOBIN 9.5 G/DL (11.9-15.5)
[2017-09-29 06:38] LABS: GLUCOSE 125 mg/dL (70-99)
[2017-09-30 04:17] VITALS: BP 158/72
[2017-09-30 05:10] LABS: HEMATOCRIT 31.6 % (36.0-46.0); HEMOGLOBIN 9.9 G/DL (11.9-15.5); MCHC 31.3 G/DL (30.0-36.0); MCV 76.5 FL (83-99); PLATELET COUNT 278 K/uL (156-360); RBC DIS.WIDTH-CV 16.2 % (11.8-14.6); RBC DIS.WIDTH-SD 45.1 % (39-53); RED BLOOD COUNT 4.13 M/uL (3.80-5.20); WHITE BLOOD COUNT 9.4 K/uL (4.1-10.2)
[2017-09-30 06:10] LABS: CHLORIDE 103 MEQ/L (99-109); CREATININE 1.1 MG/DL (0.6-1.3); GFR ESTIMATE (CALCULATED) 53 mL/min/; GLUCOSE 136 mg/dL (70-99); MAGNESIUM 1.5 mg/dl (1.3-2.7); POTASSIUM 5.2 MEQ/L (3.7-5.4); SODIUM 137 MEQ/L (136-147); UREA NITROGEN (BUN) 18 mg/dL (9-23)
[2017-09-30 08:11] VITALS: BP 158/82
[2017-09-30 11:59] VITALS: BP 136/68
[2017-09-30 16:12] VITALS: BP 128/58
[2017-09-30 20:10] VITALS: BP 115/55
[2017-09-30 23:58] VITALS: BP 140/55
[2017-10-01 06:17] LABS: HEMOGLOBIN 10.1 G/DL (11.9-15.5); MCH 24.2 PG (29.0-34.0); MCHC 31.6 G/DL (30.0-36.0); MCV 76.6 FL (83-99); PLATELET COUNT 290 K/uL (156-360); RBC DIS.WIDTH-SD 44.7 % (39-53); RED BLOOD COUNT 4.18 M/uL (3.80-5.20); WHITE BLOOD COUNT 7.7 K/uL (4.1-10.2)
[2017-10-01 06:34] LABS: CHLORIDE 103 MEQ/L (99-109); CREATININE 1.2 MG/DL (0.6-1.3); GFR ESTIMATE (CALCULATED) 48 mL/min/; GLUCOSE 184 mg/dL (70-99); MAGNESIUM 1.6 mg/dl (1.3-2.7); POTASSIUM 4.8 MEQ/L (3.7-5.4); SODIUM 137 MEQ/L (136-147); UREA NITROGEN (BUN) 20 mg/dL (9-23)
[2017-10-01 07:48] VITALS: BP 124/62
[2017-10-01 11:20] VITALS: BP 145/63
[2017-10-01 15:43] VITALS: BP 148/78
[2017-10-01 19:30] VITALS: BP 140/60
[2017-10-02 00:03] VITALS: BP 122/62
[2017-10-02 05:04] VITALS: BP 130/64
[2017-10-02 08:03] VITALS: BP 153/79
[2017-10-02 15:26] VITALS: BP 128/50
[2017-10-02 20:16] VITALS: BP 130/70
[2017-10-03 00:03] VITALS: BP 157/73
[2017-10-03 03:39] VITALS: BP 163/72
[2017-10-03 05:35] LABS: BASOPHIL (%) 1.1 % (0-1); BASOPHIL COUNT 0.1 K/uL (0-0.1); EOSINOPHIL (%) 17.6 % (0-5); EOSINOPHIL COUNT 1.5 K/uL (0-0.3); HEMATOCRIT 30.8 % (36.0-46.0); HEMOGLOBIN 9.7 G/DL (11.9-15.5); IMMATURE GRANULOCYTE (%) 0.3 % (0.0-0.7); LYMPHOCYTE (%) 18.9 % (15-42); LYMPHOCYTE COUNT 1.7 K/uL (1.0-2.8); MCH 24.3 PG (29.0-34.0); MCHC 31.5 G/DL (30.0-36.0); MONOCYTE (%) 7.9 % (3-12); MONOCYTE COUNT 0.7 K/uL (0-0.8); NEUTROPHIL (%) 54.2 % (45-76); NEUTROPHIL COUNT 4.7 K/uL (1.8-6.4); PLATELET COUNT 281 K/uL (156-360); RBC DIS.WIDTH-CV 16.1 % (11.8-14.6); RBC DIS.WIDTH-SD 45.1 % (39-53); WHITE BLOOD COUNT 8.8 K/uL (4.1-10.2)
[2017-10-03 06:02] LABS: CHLORIDE 104 MEQ/L (99-109); GFR ESTIMATE (CALCULATED) > 59 mL/min/; GLUCOSE 195 mg/dL (70-99); POTASSIUM 4.8 MEQ/L (3.7-5.4); SODIUM 138 MEQ/L (136-147); UREA NITROGEN (BUN) 25 mg/dL (9-23)
[2017-10-03 07:56] VITALS: BP 152/68
[2017-10-03 12:17] VITALS: BP 144/62
[2017-10-03] MEDS ORDERED: LOPRESSOR25 MG PO (12:44)
[2017-10-03] MEDS ORDERED: METFORMIN HCL1000 MG PO (12:46)
[2017-10-03] MEDS ORDERED: BACTRIM,SEPT1 TABLET PO (13:09)
== END 2017-10-03 15:30 | disposition home or self-care (01) | DRG 617 ==
LOC: EME 16:06 → EXP 16:06 → 3EAST 21:36 → EDOF 21:36 → 3EAST 23:08
PROVIDERS: Hospitalist; Internal Medicine; Nurse Practitioner Family
PROC: 0Y6S0Z0 Detachment at Left 2nd Toe, Complete, Open Approach (ICD-10-PCS; principal; 2017-10-01)
DX: E11.69 Type 2 diabetes mellitus with other specified complication (principal); E11.52 Type 2 diabetes mellitus with diabetic peripheral angiopathy with gangrene; M86.172 Other acute osteomyelitis, left ankle and foot; E11.621 Type 2 diabetes mellitus with foot ulcer; I25.10 Atherosclerotic heart disease of native coronary artery without angina pectoris; K21.9 Gastro-esophageal reflux disease without esophagitis; M84.675A Pathological fracture in other disease, left foot, initial encounter for fracture; I10 Essential (primary) hypertension; I70.262 Atherosclerosis of native arteries of extremities with gangrene, left leg; N17.9 Acute kidney failure, unspecified; E87.5 Hyperkalemia; I48.91 Unspecified atrial fibrillation; Z95.1 Presence of aortocoronary bypass graft; Z79.01 Long term (current) use of anticoagulants; L97.529 Non-pressure chronic ulcer of other part of left foot with unspecified severity; Z87.891 Personal history of nicotine dependence; Z79.4 Long term (current) use of insulin; J45.909 Unspecified asthma, uncomplicated; D64.9 Anemia, unspecified; E78.5 Hyperlipidemia, unspecified; I25.2 Old myocardial infarction
CPT/HCPCS: 36415; 73630; 73706; 80048; 80053; 80202; 82948; 83036; 83605; 83735; 84132 91; 84134; 85025; 85027; 85651; 86140; 87040; 87070; 87075; 87077; 87147; 87186; 87205; 93005; 93971; 99281; 99284; J1815; J2270; J2543; J3370; J7030; J7050

== ENCOUNTER → 2017-10-07 | Outpatient (CLI) | payer MEDICARE, OTHER ==
[~2017-10-07] MED LIST changes: +ALEVE220 MG PO; +BACTRIM,SEPT1 TABLET PO; +BENADRYL ALLERG25 MG PO; +ELIQUIS5 MG PO; +LOPRESSOR25 MG PO; +PROTONIX40 MG PO
== END | disposition home or self-care (01) ==
LOC: CDC 12:44
DX: Z01.810 Encounter for preprocedural cardiovascular examination (principal); I70.25 Atherosclerosis of native arteries of other extremities with ulceration; I49.8 Other specified cardiac arrhythmias
CPT/HCPCS: 93000